=== PATIENT | male | born 1995 | race Caucasian/White ===

== ENCOUNTER 2020-12-25 06:59 | Emergency (ER) | payer OTHER ==
[~2020-12-25] VITALS: Ht 175.3 cm; Wt 87.7 kg
[2020-12-25] MEDS ORDERED: NS 1,000 ML IV ONE (07:30)
[2020-12-25] MEDS ORDERED: FAMOTIDINE INJ 20MG/2ML VIAL (S0028 PER 1) IVP ONE (07:30)
[2020-12-25] MEDS ORDERED: diphenhydrAMINE 50MG/ML VIAL (J1200) IM ONE (07:30)
[2020-12-25] MEDS ORDERED: methylPREDNISolone 125MG 2ML VIAL IV ONE (07:40)
[2020-12-25] MEDS ORDERED: diphenhydrAMINE 50MG/ML VIAL (J1200) IV ONE (07:45)
[2020-12-25] MEDS ORDERED: PRED20TA PO (09:21)
[2020-12-25] MEDS ORDERED: PEPC1TAB5 PO (09:21)
[2020-12-25 09:25] VITALS: BP 124/68
== END 2020-12-25 09:38 | disposition home or self-care (01) ==
LOC: M ED 06:59
DX: R22.0 Localized swelling, mass and lump, head (principal); T50.B95A Adverse effect of other viral vaccines, initial encounter; E78.5 Hyperlipidemia, unspecified; Z79.899 Other long term (current) drug therapy
CPT/HCPCS: 96361; 96374; 99284; J1200; J2930